=== PATIENT | female | born 1990 | race Caucasian/White ===

== ENCOUNTER 2019-01-12 19:59 | Inpatient (IN) | payer BC ==
[2019-01-12 20:57] LABS: APPEARANCE,URINE CLOUDY; BILIRUBIN,URINE NEGATIVE (NEGATIVE); COLOR,URINE YELLOW; GLUCOSE, URINE NEGATIVE (NEGATIVE); KETONES,URINE NEGATIVE (NEGATIVE); LEUKOCYTE ESTERASE,URINE SMALL (NEGATIVE); NITRITE,URINE NEGATIVE (NEGATIVE); PROTEIN,URINE 100 mg/dL (NEGATIVE); URINE SPECIFIC GRAVITY 1.004; UROBILINOGEN,URINE NEGATIVE mg/dL (<2.0)
[2019-01-12] MEDS ORDERED: RINGERS SOLUTION,LACTATED 1,000 ML IV ONE (21:05)
[2019-01-12] MEDS ORDERED: RINGERS SOLUTION,LACTATED 1,000 ML IV PRN (21:05)
[2019-01-12 21:35] LABS: URINE AMPHETAMINES SCREEN NEGATIVE; URINE BARBITURATES SCREEN NEGATIVE; URINE BENZODIAZEPINES SCREEN NEGATIVE; URINE COCAINE SCREEN NEGATIVE; URINE MARIJUANA (THC) SCREEN NEGATIVE; URINE METHADONE SCREEN NEGATIVE; URINE PHENCYCLIDINE SCREEN NEGATIVE
[2019-01-12 21:48] LABS: ABSOLUTE EOSINOPHILS # (AUTO) 0.1 10^3/uL (0.0-0.6); ABSOLUTE LYMPHOCYTES (AUTO) 2.7 10^3/uL (0.5-4.7); BASOPHILS % (AUTO) 0.3 % (0-2); EOSINOPHILS % (AUTO) 0.6 % (0-6); HEMATOCRIT 35.3 % (36.0-47.0); HEMOGLOBIN 12.1 g/dL (12.0-15.5); LYMPHOCYTES % (AUTO) 18.1 % (13-45); MEAN CORPUSCULAR HEMOGLOBIN 31.7 pg (27.0-33.4); MEAN CORPUSCULAR HGB CONC 34.4 g/dL (32.0-36.0); MEAN CORPUSCULAR VOLUME 92 fl (80-97); MONOCYTES % (AUTO) 6.7 % (3-13); PLATELET COUNT 181 10^3/uL (150-450); RED BLOOD COUNT 3.83 10^6/uL (3.72-5.28); SEGMENTED NEUTROPHILS % (AUTO) 74.3 % (42-78); TOTAL CELLS COUNTED % (AUTO) 100 %; WHITE BLOOD COUNT 14.8 10^3/uL (4.0-10.5)
[2019-01-12] MEDS ORDERED: OXYTOCIN 10 UNIT/ML VIAL ONE (23:03)
[2019-01-12] MEDS ORDERED: MISOPROSTOL 0.2 MG TABLET ONE (23:04)
[2019-01-12] MEDS ORDERED: OXYTOCIN/NORMAL SALINE 20 UNIT/1,000 ML RTUINJ ONE (23:04)
[2019-01-12] MEDS ORDERED: LIDOCAINE 1% INJ-PF (10 MG/ML) 30 ML SDV ONE (23:04)
--- NOTE | 2019-01-12 23:08 | Admission Physical ---
Datetime Report Generated by CPN: 01/12/2019 23:08 CURRENT ADMISSION Chief Complaint: Suspected Ruptured Membranes Indication for Induction: Not Applicable Admit Impression : Term, Intrauterine Admit Plan: Initiate Labor Protocol ALLERGIES Medication Allergies: No Medication Allergies: latex (01/12/2019) Latex: Latex Allergies OBSTETRICAL HISTORY EDC: 02/07/2019 00:00 : 2 Para: 1 Term: 1 Livin Gestational Diabetes: No Rh Sensitization: No Incompetent Cervix: No LOTTIE: No Infertility: No ART Treatment: No Uterine Anomaly: No IUGR: No Hx Previous C/S: No Macrosomia: No Hx Loss/Stillborn: No PIH: No Hx : No Placenta Previa/Abruption: No Depression/PP Depression: No PTL/PROM: No Post Hemorrhage: No Current Procedures: Ultrasound; NST Obstetrical History Comments: 08-15-2014 G2 - Current SEE RECORDS Alcohol: No Marijuana : No Cocaine: No Other Illicit Drugs: No Cigarettes: Never Smoker. 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 Heart Disease: No Hosp/Surgery: No Autoimmune Disorder: No Anesthetic Complications: No Kidney Disease: No Abnormal Pap Smear: No Neuro/Epilepsy: No Psychiatric Disorders: No Other Medical Diseases: No Hepatitis/Liver Disease: No Significant Family History: No Varicosities/Phlebitis: No Trauma/Violence : No Thyroid Dysfunction: No INFECTIOUS HISTORY Gonorrhea: No Genital Herpes: No Chlamydia: Yes Tuberculosis: No Syphilis: No Hepatitis: No HIV/AIDS Exposure: No Rash or Viral Illness: No HPV: No Infectious History Comments: Chlamydia CONSTANCE 08/24/2018 negative PHYSICAL EXAM General: Normal HEENT: Normal Neurologic: Normal Thyroid: Normal Heart: Normal Lungs: Normal Breast: Deferred Back: Normal Abdomen: Normal Genitourinary Exam: Normal Extremities: Normal DTRs: Normal Pelvic Type: Adequate FETUS A EGA: 36.2 PLANS FOR LABOR AND DELIVERY Labor and Delivery: None Pain Management: Epidural Feeding Preference: Breast Benefit of Breast Feed Discussed: Yes Circumcision: N/A INFORMED CONSENT Signature: with User ID: [email or web address]
[2019-01-13] MEDS ORDERED: EPHEDRINE SULFATE INJ 50 MG/1 ML AMPULE ONE (00:14)
[2019-01-13] MEDS ORDERED: FENTANYL/BUPIVACAINE/NS/PF 300 MCG/150 ML RTUINJ EPI ONE (00:14)
[2019-01-13] MEDS ORDERED: BUPIVACAINE HCL 0.25 % INJ/PF (2.5 MG/1 ML) 30 ML VIAL ONE (00:15)
[2019-01-13] MEDS ORDERED: DIBUCAINE 1% OINTMENT 56 GM TP PRN (03:17)
[2019-01-13] MEDS ORDERED: DIPHENHYDRAMINE HCL 25 MG CAPSULE PO PRN (03:17)
[2019-01-13] MEDS ORDERED: ACETAMINOPHEN WITH CODEINE #3 TABLET PO PRN (03:17)
[2019-01-13] MEDS ORDERED: BENZOCAINE/MENTHOL AEROSOL SPRAY 56 ML TOP PRN (03:17)
[2019-01-13] MEDS ORDERED: MEASLES,MUMPS&RUBELLA VACC/PF 0.5 ML VIAL SUBCUT PRN (03:17)
[2019-01-13] MEDS ORDERED: PROMETHAZINE HCL 25 MG TABLET PO PRN (03:17)
[2019-01-13] MEDS ORDERED: OXYTOCIN/NORMAL SALINE 20 UNIT/1,000 ML RTUINJ IV PRN (03:17)
[2019-01-13] MEDS ORDERED: DIPH/PERTUSS(ACELL)/TETANUS VAC/PF 0.5 ML SYR (>=10YO) IM PRN (03:17)
[2019-01-13] MEDS ORDERED: PROMETHAZINE HCL 25 MG SUPP.RECT PR PRN (03:17)
[2019-01-13] MEDS ORDERED: PSEUDOEPHEDRINE HCL 30 MG TABLET PO PRN (03:17)
[2019-01-13] MEDS ORDERED: NA PHOS,M-B/NA PHOS,DI-BA (ADULT) 133 ML ENEMA PR PRN (03:17)
[2019-01-13] MEDS ORDERED: GLYCERIN/WITCH HAZEL LEAF 1 EACH MED..WIPE TP PRN (03:17)
[2019-01-13] MEDS ORDERED: ACETAMINOPHEN 650 MG SUPP.RECT PR PRN (03:17)
[2019-01-13] MEDS ORDERED: MAGNESIUM HYDROXIDE SUSP 30 ML UDCUP PO PRN (03:17)
[2019-01-13] MEDS ORDERED: PROMETHAZINE HCL INJ 25 MG/1 ML VIAL IV PRN (03:17)
[2019-01-13] MEDS ORDERED: ZOLPIDEM TARTRATE 5 MG TABLET PO PRN (03:17)
--- NOTE | 2019-01-13 05:10 | Delivery Summary ---
Del Sum A-C Datetime Report Generated by CPN: 01/13/2019 05:10 DELIVERY PERSONNEL DELIVERY PERSONNEL: [id number] Delivery Doctor:: Kurt Shepherd MD Labor and Delivery Nurse:: Dianne Ramirez RNcarpet layer helper Nurse:: Lilian Doss RN Reinforcing Steel Machine Operator:: Sheree Goodwin RN Stone Grader/CLEANER AND TRIMMER: Adelaida Wray, ST MATERNAL INFORMATION Delivery Anesthesia: Epidural Medications After Delivery: Pitocin Bolus-Please Comment Meds After Delivery Comment: Pitocin 20 units/1000 ml NSS Delivery QBL: 150 Maternal Complications: None LABOR SUMMARY EDC: 01/21/2019 00:00 No. Babies in Womb: 1 Attempted: No Labor Anesthesia: Epidural LABOR INFORMATION Reason for Induction: Not Applicable Onset of Labor: 01/12/2019 19:15 Complete Dilatation: 01/13/2019 02:18 Oxytocin: N/A Group B Beta Strep: Negative Antibiotics # of Doses: 0 Steroids Given: None Reason Steroids Not Administered: Not Applicable MEMBRANES Membranes Rupture Method: Spontaneous Rupture of Membranes: 01/12/2019 19:15 Length of Rupture (hr): 7.77 Amniotic Fluid Color: Clear Amniotic Fluid Amount: Moderate Amniotic Fluid Odor: Normal STAGES OF LABOR Stage 1 hr: 7 Stage 1 min: 3 Stage 2 hr: 0 Stage 2 min: 43 Stage 3 hr: 0 Stage 3 min: 5 Total Time in Labor hr: 7 Total Time in Labor min: 51 VAGINAL DELIVERY Episiotomy: None Laceration #1: Perineal Laceration Extension #1: N/A Laceration Repair: Yes Laceration Repair Note: 2-9 vicryl Sponge Count Correct: N/A Sharps Count Correct: N/A CSECTION DELIVERY Primary Indication: N/A Secondary Indication: N/A CSection Incidence: N/A Labor: N/A Elective: N/A CSection Incision: N/A BABY A INFORMATION Delivery Date/Time: 01/13/2019 03:01 Method of Delivery: Vaginal Born in Route : No : N/A Forceps: N/A Vacuum Extraction: N/A Shoulder Dystocia : No PRESENTATION/POSITION BABY A Presentation: Cephalic Cephalic Presentation: Vertex Vertex Position: Right Occipital Anterior Breech Presentation: N/A PLACENTA INFORMATION BABY A Placenta Delivery Time : 01/13/2019 03:06 Placenta Method of Delivery: Spontaneous Placenta Status: Delivered SCORES BABY A Heart Rate 1 min: >100 bpm Resp Effort 1 min: Good Cry Reflex Irritability 1 min: Cough or Sneeze or Pulls Away Muscle Tone 1 min: Active Motion Color 1 min: Body [place], Extremities Blue Resuscitation Effort 1 min: Tactile Stimulation SCORE 1 MIN: 9 Heart Rate 5 min: >100 bpm Resp Effort 5 min: Good Cry Reflex Irritability 5 min: Cough or Sneeze or Pulls Away Muscle Tone 5 min: Active Motion Color 5 min: Body [place], Extremities Blue Resuscitation Effort 5 min: Tactile Stimulation SCORE 5 MIN: 9 INFORMATION BABY A Gestational Age at Delivery: 38.6 Gestational Status: Early Term- 37- 38.6 Weeks Outcome : Liveborn Condition : Stable Sex: Female IDENTIFICATION BABY A Infant Verification Date/Time: 01/13/2019 03:25 ID Band Number: [id number] Mother's Name Verified: Yes Infant RN Verifying : Suha Blair RN/ TlSantiago RN WEIGHT/LENGTH BABY A Birthweight (gm): 3048 Weight (lb): 6 Weight (oz): 12 Infant Length (in): 19.50 Infant Length (cm): 49.53 CORD INFORMATION BABY A No. Cord Vessels: 3 Nuchal Cord : N/A Cord Blood Taken: Yes-For Storage (Mom's Blood type +) Infant Suction: Mouth ASSESSMENT BABY A Complications: None Physical Findings at Delivery: Within Normal Limits; Molding of the Head Respirations: Appears Normal Skin to Skin: Yes Industrial Trainer/ALS Called : No Care By: Marcos Doss RN Transferred To: Remains with Mother SIGNATURES Signature: with User ID: [email or web address]
[2019-01-13] MEDS: IBUPROFEN 800 MG TABLET PO SCH ×3 (06:05→21:39)
[2019-01-13] MEDS: DOCUSATE SODIUM 100 MG CAPSULE PO SCH ×2 (09:54→17:16)
[2019-01-13] MEDS: PRENATAL VITAMIN W DHA CAPSULE PO SCH (09:54)
[2019-01-13] MEDS: FAMOTIDINE 20 MG TABLET PO SCH ×2 (09:54→21:40)
[2019-01-13] MEDS: SENNOSIDES/DOCUSATE 8.6-50 MG 1 EACH TABLET PO SCH (09:54)
[2019-01-13] MEDS: FERROUS SULFATE 325 MG TABLET PO SCH ×2 (09:54→17:16)
--- NOTE | 2019-01-13 10:01 | PDOC PROGRESS REPORT ---
Subjective-OB Progress Note for:: 01/13/19 Subjective: Doing well, no c/o, , ambulating, scant bleeding Physical Exam (OB) Vital Signs: Temp Pulse Resp BP Pulse Ox 98.5 F 86 16 122/69 97 01/13/19 07:26 01/13/19 07:26 01/13/19 07:26 01/13/19 07:26 01/13/19 07:26 Intake & Output 01/12/19 01/13/19 01/14/19 06:59 06:59 06:59 Weight 61.4 kg - Lochia Lochia Amount: Scant < 10 ml Lochia Color: Rubra/Red - Abdomen Description: Soft, Round Hernia Present: No Fundal Description: Firm, Midline Fundal Height: u/u - u/2 Objective-Diagnostic Laboratory: 01/12/19 21:35 01/12/19 01/12/19 01/12/19 20:20 21:35 21:35 WBC 14.8 H RBC 3.83 Hgb 12.1 Hct 35.3 L MCV 92 MCH 31.7 MCHC 34.4 RDW 13.0 Plt Count 181 Seg Neutrophils % 74.3 Urine Color YELLOW Urine Appearance CLOUDY Urine pH 8.0 Ur Specific Lacey 1.004 Urine Protein 100 H Urine Glucose (UA) NEGATIVE Urine Ketones NEGATIVE Urine Blood SMALL H Urine Nitrite NEGATIVE Ur Leukocyte Esterase SMALL H Blood Type A POSITIVE Antibody Screen NEGATIVE Assessment and Plan(PN) - Assessment and Plan (1) Normal vaginal delivery Is this a current diagnosis for this admission?: Yes - Time Spent with Patient Time with patient: Less than 15 minutes Medications reviewed and adjusted accordingly: Yes - Disposition Anticipated Discharge: Home Within: within 24 hours
[2019-01-14 06:17] LABS: HEMATOCRIT 30.4 % (36.0-47.0); HEMOGLOBIN 10.5 g/dL (12.0-15.5); MEAN CORPUSCULAR HEMOGLOBIN 31.9 pg (27.0-33.4); MEAN CORPUSCULAR HGB CONC 34.4 g/dL (32.0-36.0); MEAN CORPUSCULAR VOLUME 93 fl (80-97); PLATELET COUNT 136 10^3/uL (150-450); RED BLOOD COUNT 3.29 10^6/uL (3.72-5.28); RED CELL DISTRIBUTION WIDTH 13.1 % (11.5-14.0); WHITE BLOOD COUNT 11.3 10^3/uL (4.0-10.5)
[2019-01-14] MEDS: IBUPROFEN 800 MG TABLET PO SCH ×2 (06:18→13:56)
[2019-01-14 08:42] VITALS: BP 116/66
--- NOTE | 2019-01-14 08:58 | PDOC PROGRESS REPORT ---
Subjective-OB Progress Note for:: 01/14/19 Subjective: Doing well, no c/o, would like to go home if baby can go, breast feeding, walking and voiding Physical Exam (OB) Vital Signs: Temp Pulse Resp BP Pulse Ox 97.9 F 84 16 116/66 100 01/14/19 07:22 01/14/19 07:22 01/14/19 07:22 01/14/19 07:22 01/14/19 07:22 Intake & Output 01/13/19 01/14/19 01/15/19 06:59 06:59 06:59 Weight 61.4 kg - PIH/Pre-Eclampsia Epigastric Pain: No Visual Changes: No - Lochia Lochia Amount: Small 10-25 ml Lochia Color: Rubra/Red - Abdomen Description: Soft Hernia Present: No Fundal Description: Firm, Midline Fundal Height: u/u - u/2 Objective-Diagnostic Laboratory: 01/14/19 06:03 01/14/19 06:03 WBC 11.3 H RBC 3.29 L Hgb 10.5 L Hct 30.4 L MCV 93 MCH 31.9 MCHC 34.4 RDW 13.1 Plt Count 136 L Assessment and Plan(PN) - Assessment and Plan (1) Normal vaginal delivery Is this a current diagnosis for this admission?: Yes - Time Spent with Patient Time with patient: Less than 15 minutes Medications reviewed and adjusted accordingly: Yes - Disposition Anticipated Discharge: Home Within: within 24 hours
[2019-01-14] MEDS: FAMOTIDINE 20 MG TABLET PO SCH (10:06)
[2019-01-14] MEDS: DOCUSATE SODIUM 100 MG CAPSULE PO SCH (10:06)
[2019-01-14] MEDS: PRENATAL VITAMIN W DHA CAPSULE PO SCH (10:06)
[2019-01-14] MEDS: SENNOSIDES/DOCUSATE 8.6-50 MG 1 EACH TABLET PO SCH (10:06)
[2019-01-14] MEDS: FERROUS SULFATE 325 MG TABLET PO SCH (10:06)
--- NOTE | 2019-01-18 08:56 | PDOC DISCHARGE SUMMARY ---
Impression - Admit/DC Date/PCP Admission Date/Primary Care Provider: 01/12/19 21:10 SIRISHA ALCAZAR MD Discharge Date: 01/15/19 - Discharge Diagnosis (1) Normal vaginal delivery Is this a current diagnosis for this admission?: Yes - Additional Information Resuscitation Status: Full Code Discharge Diet: As Tolerated Discharge Activity: Activity As Tolerated, Balance Activity w/Rest, No Driving, No Lifting Over 10 Pounds, No Lifting/Push/Pulling, Pelvic Rest, No tub bath Referrals: WOODROW HAMMOND MD [ACTIVE STAFF] - (Follow up at [facility] for check in 4 weeks) Home Medications: Famotidine [Pepcid 20 mg Tablet] 20 mg PO DAILY 01/12/19 Prenat 115/Iron Fum/Folic/Dss [ 19 Tablet] 1 each PO DAILY 01/12/19 HPI Gestational Age: 38.6 Reason(s) for Admission: Onset of Labor Procedures: NST, Ultrasound Intrapartum Procedure(s): Spontaneous Vaginal Delivery Complication(s): Laceration-Perineal Laceration-Degree: 1st - wt -, 10/31 Hospital Course Hospital Course: routine Results Laboratory Results: WBC 11.3 10^3/uL (4.0-10.5) H 01/14/19 06:03 RBC 3.29 10^6/uL (3.72-5.28) L 01/14/19 06:03 Hgb 10.5 g/dL (12.0-15.5) L 01/14/19 06:03 Hct 30.4 % (36.0-47.0) L 01/14/19 06:03 MCV 93 fl (80-97) 01/14/19 06:03 MCH 31.9 pg (27.0-33.4) 01/14/19 06:03 MCHC 34.4 g/dL (32.0-36.0) 01/14/19 06:03 RDW 13.1 % (11.5-14.0) 01/14/19 06:03 Plt Count 136 10^3/uL (150-450) L 01/14/19 06:03 Lymph % (Auto) 18.1 % (13-45) 01/12/19 21:35 Angelina % (Auto) 6.7 % (3-13) 01/12/19 21:35 Eos % (Auto) 0.6 % (0-6) 01/12/19 21:35 Baso % (Auto) 0.3 % (0-2) 01/12/19 21:35 Absolute Neuts (auto) 11.0 10^3/uL (1.7-8.2) H 01/12/19 21:35 Absolute Lymphs (auto) 2.7 10^3/uL (0.5-4.7) 01/12/19 21:35 Absolute Monos (auto) 1.0 10^3/uL (0.1-1.4) 01/12/19 21:35 Absolute Eos (auto) 0.1 10^3/uL (0.0-0.6) 01/12/19 21:35 Absolute Basos (auto) 0.0 10^3/uL (0.0-0.2) 01/12/19 21:35 Seg Neutrophils % 74.3 % (42-78) 01/12/19 21:35 Urine Color YELLOW 01/12/19 20:20 Urine Appearance CLOUDY 01/12/19 20:20 Urine pH 8.0 (5.0-9.0) 01/12/19 20:20 Ur Specific [place] 1.004 01/12/19 20:20 Urine Protein 100 mg/dL (NEGATIVE) H 01/12/19 20:20 Urine Glucose (UA) NEGATIVE mg/dL (NEGATIVE) 01/12/19 20:20 Urine Ketones NEGATIVE mg/dL (NEGATIVE) 01/12/19 20:20 Urine Blood SMALL (NEGATIVE) H 01/12/19 20:20 Urine Nitrite NEGATIVE (NEGATIVE) 01/12/19 20:20 Urine Bilirubin NEGATIVE (NEGATIVE) 01/12/19 20:20 Urine Urobilinogen NEGATIVE mg/dL (<2.0) 01/12/19 20:20 Ur Leukocyte Esterase SMALL (NEGATIVE) H 01/12/19 20:20 Urine Ascorbic Acid NEGATIVE (NEGATIVE) 01/12/19 20:20 Membranes Rupture POSITIVE (NEGATIVE) H 01/12/19 20:20 Urine Opiates Screen NEGATIVE 01/12/19 20:20 Urine Methadone Screen NEGATIVE 01/12/19 20:20 Ur Barbiturates Screen NEGATIVE 01/12/19 20:20 Ur Phencyclidine Scrn NEGATIVE 01/12/19 20:20 Ur Amphetamines Screen NEGATIVE 01/12/19 20:20 U Benzodiazepines Scrn NEGATIVE 01/12/19 20:20 Urine Cocaine Screen NEGATIVE 01/12/19 20:20 U Marijuana (THC) Screen NEGATIVE 01/12/19 20:20 RPR NONREACTIVE (NONREACTIVE) 01/12/19 21:35 Blood Type A POSITIVE 01/12/19 21:35 Antibody Screen NEGATIVE 01/12/19 21:35 Plan Health Concerns: routine Plan of Treatment: home with baby Goals: no complications Time Spent: Less than 30 Minutes
== END 2019-01-14 14:35 | disposition home or self-care (01) | DRG 807 ==
LOC: LC 19:59 → LR 21:10 → 2S 01-13 05:45
PROVIDERS: ADMIT Obstetrics & Gynecology Gynecology; ATTEND Obstetrics & Gynecology Gynecology
PROC: 10E0XZZ Delivery of Products of Conception, External Approach (ICD-10-PCS; principal; 2019-01-13)
PROC: 0HQ9XZZ Repair Perineum Skin, External Approach (ICD-10-PCS; 2019-01-13)
DX: O70.0 First degree perineal laceration during delivery (principal); Z37.0 Single live birth; Z3A.38 38 weeks gestation of pregnancy; Z91.040 Latex allergy status
CPT/HCPCS: 36415; 59025; 80307; 81005; 84112; 85025; 85027; 86592; 86850; 86900; 86901; J2590; J3010; J3490